=== PATIENT | female | born 1935 | race Caucasian/White ===

== ENCOUNTER → 2020-10-12 12:59 | Outpatient (CLI) | payer MEDICARE, OTHER ==
[2015-02-18 15:18] VITALS: BMI 19.4
[~2020-10-12 12:59] MED LIST: ALENDRONATE SOD70 MG PO; BETAGAN 0.5% OPH5 ML EACH EYE; CALCI-CHEW1 TAB.CHEW PO; METAMUCIL1042 GM PO; METOPROLOL TART50 MG PO; VITAMIN B-1000 MCG/M SQ; ZOCOR20 MG PO
== END | disposition home or self-care (01) ==
LOC: D.RAD 12:59
PROVIDERS: ATTEND Family Medicine
DX: R13.10 Dysphagia, unspecified (principal)